=== PATIENT | male | born 1960 | race Caucasian/White ===

== ENCOUNTER 2020-01-05 22:55 | Emergency (ER) | payer BC, OTHER ==
[~2020-01-05 22:55] MED LIST: Iopamidol 370 76% 100 ML VIAL ONE
[2020-01-05 23:45] LABS: Band 2 % (5-11); Eosinophils 3 % (0-10); Hemoglobin 9.5 g/dL (14.0-18.0); Lymphocytes 9 % (21-51); MDiff Complete? YES; Mean Corpuscular HGB CONC 32.5 g/dL (32.0-36.0); Mean Corpuscular Hemoglobin 30.8 pg (27.0-31.0); Mean Corpuscular Volume 94.9 fL (78.0-98.0); Mean Platelet Volume 8.1 fL (7.4-10.4); Monocytes 14 % (0-10); Neutrophil 72 % (42-75); Platelet Count 383 thou/uL (130-400); Platelet Morphology Comment Appears Adequate; RBC Distribution Width 16.6 % (11.5-14.5); Red Blood Cell (RBC) Count 3.09 mill/uL (4.70-6.10); White Blood Cell (WBC) Count 7.5 thou/uL (4.8-10.8)
[2020-01-05] MEDS ORDERED: Morphine 4 MG/ML VIAL ONE (23:45)
[2020-01-05] MEDS ORDERED: Ondansetron PF 4 MG/2 ML Vial ONE (23:45)
[2020-01-06 00:04] LABS: ALT (SGPT) 73 U/L (8-55); AST (SGOT) 89 U/L (5-34); Albumin 3.7 g/dL (3.5-5.0); Alkaline Phosphatase 637 U/L (40-110); Anion Gap 18 mmol/L (10-20); BUN (Urea Nitrogen) 13 mg/dL (8.4-25.7); Bilirubin, Total 1.2 mg/dL (0.2-1.2); Calc. Creatinine Clearance 0 mL/min (70-130); Calcium 10.2 mg/dL (7.8-10.44); Carbon Dioxide 18 mmol/L (22-29); Chloride 102 mmol/L (98-107); Estimated GFR-MDRD 57; Globulin 3.1 g/dL (2.4-3.5); Glucose 222 mg/dL (70-105); Lipase 77 U/L (8-78); Potassium 4.7 mmol/L (3.5-5.1); Protein, Total 6.8 g/dL (6.0-8.3); Sodium 133 mmol/L (136-145)
[2020-01-06 00:55] LABS: Bacteria/HPF None Seen HPF (None Seen); Bilirubin 1+ (Negative); Blood, Urine 1+ (Negative); Clarity Clear (Clear); Glucose, Urine (Dipstick) 100 mg/dL (Negative); Leukocyte Negative Leu/uL (Negative); Nitrite Negative (Negative); Protein, Urine (Dipstick) 200 mg/dL (Neg-Trace); Squamous Epithelial 0-3 HPF (0-3); WBC/HPF 0-3 HPF (0-3)
[2020-01-06] MEDS ORDERED: HYDROcodone/Acetaminophen 5/325 mg Tablet ONE (01:25)
--- NOTE | 2020-01-06 07:53 | CT ---
PRELIMINARY REPORT/[facility]/EMERGENCY AFTER HOURS PROCEDURE CT SCAN OF THE ABDOMEN AND PELVIS WITH IV CONTRAST CLINICAL HISTORY: Abdominal pain x 1 month with associated nausea and vomiting, history of pancreatic cancer TECHNIQUE: Axial images obtained. Coronal images obtained. Sagittal images obtained. Exam is performed with administration of Isovue intravenous contrast. Per PQRS, CT exam is performed using one or more of the following dose reduction technique: Automated exposure control, adjustment of mA and/or KV according to patient size, or use of iterative reconstruction techniques. COMPARISON: None. FINDINGS: There is demonstration of multiple epigastric mesenteric lymph nodes with surrounding fat stranding c onsistent with mild epigastric mesenteric adenitis. Multiple masses are seen throughout the liver, possible metastatic disease. Multiple pancreatic masses are seen, possible localized metastatic disease. A large tail of pancreas mass is seen measuring 10.7 x 8.4 cm suggesting adenocarcinoma of the pancre as. Bilateral renal cysts are seen. Sigmoid colon diverticulosis is seen without diverticulitis. A normal appendix is seen. Moderate disc space narrowing and osteophyte formation of the lumbar spine is seen at multiple levels . The rest of the solid organs, viscera, and bones are unremarkable. IMPRESSION: 1. Epigastric mesenteric adenitis. 2. Large pancreatic tail mass suggesting adenocarcinoma of the pancreas. 3. Metastatic disease throughout the liver and pancreas. Recommend CT PET for further workup. 4. Multiple chronic findings as above. No prior exams to compare. ELECTRONICALLY SIGNED BY: Arturo Townsend MD Jan 06, 2020 12:19:08 AM CDT This report is intended for review by the ordering physician only, in accordance of law. If you recei ve this report in error, please call [facility] at [phone]. FINAL REPORT CT ABDOMEN AND PELVIS WITH IV CONTRAST: I agree with the preliminary report given by [facility]. The pancreatic tail mass extends into the spleen. Transcribed Date/Time: 01/06/2020 8:22 AM
== END 2020-01-06 01:43 | disposition home or self-care (01) ==
LOC: ERS 22:55
DX: C25.9 Malignant neoplasm of pancreas, unspecified (principal); R10.13 Epigastric pain; R11.2 Nausea with vomiting, unspecified; E11.9 Type 2 diabetes mellitus without complications; E78.5 Hyperlipidemia, unspecified; I10 Essential (primary) hypertension; F41.9 Anxiety disorder, unspecified; Z79.899 Other long term (current) drug therapy; Z79.84 Long term (current) use of oral hypoglycemic drugs
CPT/HCPCS: 36415; 74177; 80053; 81003; 81015; 83605; 83690; 85025; 87040; 87149; 96361; 96374; 96375; J2270; J2405; Q9967